=== PATIENT | female | born 1980 | race Caucasian/White ===

== ENCOUNTER → 2019-09-29 | Outpatient (CLI) | payer OTHER ==
[~2019-09-29] VITALS: Ht 162.6 cm; Wt 72.6 kg
[~2019-09-29] MED LIST: CONTRAST GIVEN. MC PRN; IOHEXOL 300 MG/ML 100ML VIAL. IV ONE; IOHEXOL 300 MG/ML 100ML VIAL. ONE; SINCALIDE 1.45 MCG in IV NORMAL SALINE 50ML 30 ML IV ONE
--- NOTE | 2019-09-29 12:04 | RAD ---
EXAM: Abdomen and pelvis CT with intravenous contrast. HISTORY: Epigastric pain, nausea and vomiting. TECHNIQUE: Computed tomographic images of the abdomen and pelvis were obtained following the administration of 75 cc Omnipaque 300 intravenous contrast. Multiplanar reformatting was performed. *One or more of the following individualized dose reduction techniques were utilized for this examination: 1. Automated exposure control. 2. Adjustment of the mA and/or kV according to patient size. 3. Use of iterative reconstruction technique. COMPARISON: Sonogram dated 01/18/2014. FINDINGS: Evaluation of the lower thorax is unremarkable. No suspicious hepatic lesion is seen. The gallbladder, pancreas, spleen, adrenal glands and kidneys are unremarkable. There is no appendicitis. There is no bowel obstruction. The urinary bladder is unremarkable. There is a 2.4 cm dominant right ovarian follicle/follicular cyst and small amount of pelvic free fluid. There is a 1.9 cm fluid density structure within the cervix, likely a large nabothian cyst. There is no lymphadenopathy. There is no suspicious osseous lesion. IMPRESSION: 1. No acute abdominal finding. 2. 2.4 cm dominant right ovarian follicle/follicular cyst and small amount of pelvic free fluid, within this cirrhotic limits for a premenopausal female. There is also a suspected incidental nabothian cyst within the cervix. Electronically signed by: Catherine Narayan MD (09/29/2019 12:01 PM) [id number]
--- NOTE | 2019-09-29 14:09 | RAD ---
EXAM: HEPATOBILIARY SCINTIGRAPHY WITH GALLBLADDER EJECTION FRACTION CALCULATION. HISTORY: Abdominal pain/nausea. TECHNIQUE: 5.5 mCi technetium-99m Choletec were administered intravenously and scintigraphic images of the abdomen obtained. After filling of the gallbladder, 1.43 mcg of sincalide were infused and the gallbladder ejection fraction calculated. FINDINGS: There is prompt hepatic clearance of tracer from the blood pool. There is homogeneous distribution throughout the liver. There is normal filling of the gallbladder and clearance into the biliary tree and small bowel. The gallbladder ejection fraction is 59% (normal >35%). IMPRESSION: 1. Normal gallbladder ejection fraction. Electronically signed by: Ivone Jasso MD (09/29/2019 2:05 PM) [facility]
== END | disposition home or self-care (01) ==
LOC: CT 11:01
PROVIDERS: ATTEND Surgery
DX: R10.13 Epigastric pain (principal); R11.2 Nausea with vomiting, unspecified
CPT/HCPCS: 74177; 78227; A9537; J2805; Q9967

== ENCOUNTER → 2020-03-12 | Outpatient (CLI) | payer OTHER ==
--- NOTE | 2020-03-12 11:52 | KCIC ---
MRI Cervical Spine Without Contrast History:Bilateral wrist pain, shoulder pain Technique: Multiplanar, multi sequential noncontrast MR imaging was performed of the cervical spine. Comparison: None Findings: There is motion degradation. Cervical cord caliber is within normal limits. There is mild prominence of the central canal of the cord C6-7 to C7-T1, maximal axial dimension about 1 to 2 mm. There is no significant marrow edema. Cervical vertebral body stature is maintained. There is negligible posterior subluxation of C4 relative to C5 and C5 relative to C6. There is mild to moderate degenerative disc disease greater posteriorly at C5-6, minimally at C4-5. C2-C3: Neural foramina and spinal canal are adequate. C3-C4: Neural foramina and spinal canal are adequate. C4-C5: There is minimal disc osteophyte complex. Neural foramina and spinal canal are adequate. C5-C6: There is very minimal disc osteophyte complex, very shallow protrusion in the far right lateral recess. Spinal canal is overall adequate. Left neural foramen is adequate. There is very mild narrowing of the right neural foramen, likely minimal uncovertebral degenerative change. C6-C7: Spinal canal and neural foramina are adequate. There is bilateral facet degenerative change. C7-T1: Neural foramina and spinal canal are adequate. Impression: 1. There is no significant cervical spinal stenosis or neural foramina compromise. There is degenerative disc disease greatest at C5-6 and to a lesser degree at C4-5. 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 Electronically signed by: Kareem Pathak MD (03/12/2020 11:49 AM) [id number]
== END | disposition home or self-care (01) ==
LOC: KCIC MRI 10:15
PROVIDERS: ATTEND Physician Assistant
DX: M47.892 Other spondylosis, cervical region (principal); M54.12 Radiculopathy, cervical region; M50.320 Other cervical disc degeneration, mid-cervical region, unspecified level; M25.78 Osteophyte, vertebrae; Q06.4 Hydromyelia
CPT/HCPCS: 72141

== ENCOUNTER → 2020-07-13 | Outpatient (CLI) | payer OTHER ==
[~2020-07-13] MED LIST changes: -CONTRAST GIVEN. MC PRN; +GADOTERATE 5 MMOL/10ML VIAL. INT ART ONE; -IOHEXOL 300 MG/ML 100ML VIAL. IV ONE; -IOHEXOL 300 MG/ML 100ML VIAL. ONE; +IOHEXOL 300 MG/ML 50 ML VIAL. INT ART ONE; +LIDOCAINE 1% Multi-Dose 20 ML VIAL. ID ONE; -SINCALIDE 1.45 MCG in IV NORMAL SALINE 50ML 30 ML IV ONE
--- NOTE | 2020-07-13 15:04 | KCIC ---
Examination: MRI left shoulder arthrogram HISTORY: History of left shoulder pain, decreased range of motion COMPARISON: None available Technique: Multiplanar, multisequence MR imaging of the left shoulder performed after arthrogram injection. FINDINGS: The long head of the biceps tendon within the bicipital groove. The attachment of the long head the biceps tendon to the superior labral anchor grossly appears intact. The attachment of the subscapularis, supraspinatus, infraspinatus tendon grossly appears intact. Mild increased signal identified in the supraspinatus tendon likely mild tendinosis. The muscle bulk grossly appears unremarkable. There is increased signal identified in the signal identified in the inferior labrum extending anteriorly likely labral tear with a 1.4 cm cystic structure extending medially from the inferior labrum, best visualized on series 8 image 12 likely paralabral cyst. Moderate joint space loss identified in the the glenohumeral joint. The acromion is type II. Mild degenerative changes acromioclavicular joint. Mild chondromalacia glenoid humeral joint. IMPRESSION: 1. Tear of the inferior labrum extending anteriorly with a 1.4 cm cystic structure extending medially from the inferior labrum, best visualized on series 8 image 12 likely paralabral cyst. 2. Moderate degenerative changes glenohumeral joint. Mild chondromalacia glenohumeral joint. Electronically signed by: Naman Pickett MD (07/13/2020 3:01 PM) [place] [id number]
--- NOTE | 2020-07-16 08:31 | KCIC ---
Examination: Left Shoulder Arthrogram: Indications: Left shoulder pain. Procedure: Risks, benefits and complications including bleeding, infection, blood vessel damage or joint infection were discussed with the patient. Questions were answered and consent form signed. The patient was placed supine on the fluoroscopy table with the shoulder slightly externally rotated. Bony landmarks were used to plan for fluoroscopic injection. The patient was carefully prepped and draped in a sterile fashion. Using fluoroscopic guidance, local anesthetic and a 22 gauge needle the joint space was entered. Intra-articular location was confirmed as approximately 12cc of a mixture of 5 mL of lidocaine, 5 mL of Omnipaque, 10 mL of saline, 0.1 mL of clariscan was injected into the shoulder joint. The procedure was well tolerated and the patient was sent to MRI. No immediate complications. Total fluoroscopy time 15 seconds. Total fluoroscopic images 1. Impression: Status post fluoroscopic guided arthrogram in preparation for MRI with contrast. Electronically signed by: Naman Pickett MD (07/16/2020 8:27 AM) [id number]
== END ==
LOC: KCIC 12:32
PROVIDERS: ATTEND Physician Assistant
DX: S43.432A Superior glenoid labrum lesion of left shoulder, initial encounter (principal); M94.212 Chondromalacia, left shoulder; X58.XXXA Exposure to other specified factors, initial encounter; Y93.89 Activity, other specified; Y92.89 Other specified places as the place of occurrence of the external cause; Y99.8 Other external cause status
CPT/HCPCS: 23350; 73222; 77002; A9575; J3490; Q9967; 73040

== ENCOUNTER → 2020-08-21 | Outpatient (CLI) | payer OTHER ==
[~2020-08-21] MED LIST changes: +ASPI-630 PO; -GADOTERATE 5 MMOL/10ML VIAL. INT ART ONE; +HYDR-3164 PO; -IOHEXOL 300 MG/ML 50 ML VIAL. INT ART ONE; +LACT1CAP29 PO; -LIDOCAINE 1% Multi-Dose 20 ML VIAL. ID ONE; +LISD60CA PO; +TRAZ-123 PO; +VENL150C6 PO
== END ==
LOC: LAB 12:46
PROVIDERS: ATTEND Orthopaedic Surgery
DX: Z01.812 Encounter for preprocedural laboratory examination (principal); G56.03 Carpal tunnel syndrome, bilateral upper limbs; Z20.828 Contact with and (suspected) exposure to other viral communicable diseases
CPT/HCPCS: U0003

== ENCOUNTER 2020-08-24 06:13 | Day surgery (SDC) | payer OTHER ==
[~2020-08-24] VITALS: Ht 165.1 cm; Wt 68.0 kg
[~2020-08-24 06:13] MED LIST changes: +DEXAMETHASONE SOD PHOS 4 MG/ML VIAL ONE; -HYDR-3164 PO; +LIDOCAINE 2% PF 5 ML VIAL. ONE; +ONDANSETRON PF 4 MG/2 ML VIAL. ONE; +PROPOFOL 10 MG/ML (20ML) VIAL. IV ONE; +SEVOFLURANE 31 TO 60 MINUTES. IH ONE; +ceFAZolin SODIUM IV Push 1 GM VIAL. IVP PRN
[2020-08-24] MEDS ORDERED: MIDAZOLAM HCL/PF 2 MG/2 ML VIAL. ONE (06:33)
[2020-08-24] MEDS ORDERED: fentaNYL PF VIAL 100 MCG/2 ML VIAL ONE ×2 (06:41→08:42)
[2020-08-24] MEDS ORDERED: ONDANSETRON PF 4 MG/2 ML VIAL. IV PRN (07:00)
[2020-08-24] MEDS ORDERED: LIDOCAINE 1% PF 2 ML VIAL. ID PRN (07:00)
[2020-08-24] MEDS ORDERED: HYDROmorphone 2 MG/ML VIAL IV PRN (07:00)
[2020-08-24] MEDS ORDERED: IV RINGERS,LACTATED 1000ML 1,000 ML IV SCH (07:00)
[2020-08-24] MEDS ORDERED: PROCHLORPERAZINE 10 MG/2 ML VIAL. IV PRN (07:00)
[2020-08-24] MEDS ORDERED: MORPHINE SULFATE 2 MG/ML VIAL. IV PRN (07:00)
[2020-08-24] MEDS ORDERED: fentaNYL PF VIAL 100 MCG/2 ML VIAL IV PRN ×2 (07:00)
[2020-08-24] MEDS ORDERED: BUPIVACAINE MPF 0.25% 30 ML VIAL. ONE (07:09)
[2020-08-24] MEDS ORDERED: SCOPOLAMINE 1.5MG PATCH. TD ONE (07:30)
[2020-08-24] MEDS ORDERED: PROPOFOL 10 MG/ML (20ML) VIAL. IV ONE ×2 (07:51→08:02)
[2020-08-24] MEDS ORDERED: HYDR-3164 PO (08:44)
--- NOTE | 2020-08-24 08:47 | DISCH ---
DISCHARGE INSTRUCTIONS Condition on Discharge Condition on Discharge: Stable Activity After Discharge Activity Instructions for Disc: Other, see below (Avoid hard grasp) Lifting Instructions after Dis: No heavy lifting Weight Bearing Status after Di: As tolerated Diet after Discharge Diet after Discharge: Regular Wound Incision Care Wound/Incision Care: Keep wound elevated, Do not change dressing (Keep dressing clean and dry) Contacting the after DC Call your doctor for: Concerns you may have Follow-Up Follow up with: Dr. Saab 10 days BREANA SAAB MD Aug 24, 2020 08:47
[2020-08-24 09:01] VITALS: BP 118/48
[2020-08-24] MEDS ORDERED: HYDROcodone/APAP 5/325MG 1 TAB TABLET ONE (09:01)
[2020-08-24] MEDS ORDERED: SEVOFLURANE 16 TO 30 MINUTES. IH ONE (09:05)
[2020-08-24] MEDS ORDERED: HYDROcodone/APAP 5/325MG 1 TAB TABLET PO ONE (09:15)
--- NOTE | 2020-08-24 22:34 | PDOC4 ---
Operative Note Operative Note Date of surgery: 08/24/2020 Preoperative diagnosis: Bilateral carpal tunnel syndrome Postoperative diagnosis: Same with moderate median nerve compression Operative procedure: Bilateral carpal tunnel release Surgeon: Katiana Track Repair Supervisor: Mayank narvaez Anesthesia: General Estimated blood loss: 1 cc right hand, 4 cc, left hand Complications: None Operative indications: Please see my preoperative orthopedic clinic note for detailed operative indications and note documented bilateral carpal tunnel syndrome based on clinical examination and verified by EMG testing Operative text: Patient was identified procedure verified patient placed in supine position on operating table. After adequate amounts of general anesthesia were administered bilateral upper extremities were prepped and draped in standard sterile fashion and after timeout was performed patient procedure identified and verified the right upper extremity was exsanguinated by Esmarch bandage tourniquet inflated to 250 mmHg and a longitudinal incision made just distal to the distal wrist crease dissection carried out down to the transverse carpal ligament which was sharply divided at its midpoint with a scalpel and then divided proximally and distally with blunt Metzenbaum scissors and verification of entire release of the transverse carpal ligament both visually and palpably. No synovitis was noted in the flexor tendons median nerve was noted to have moderate compression. Thorough irrigation carried out and skin closure accomplished with nylon suture sterile soft dressings were applied, fingers noted to be warm pink following deflation of the tourniquet. Attention was then turned to the left upper extremity which was exsanguinated by Esmarch bandage which was retained proximally as a tourniquet as she had an antecubital IV in the left arm. A longitudinal incision made just distal to the distal wrist crease dissection carried out down to the transverse carpal ligament which was sharply divided at its midpoint with a scalpel and then divided proximally and distally with blunt Metzenbaum scissors and verification of entire release of the transverse carpal ligament both visually and palpably. No synovitis was noted in the flexor tendons median nerve was noted to have moderate compression. Thorough irrigation carried out and skin closure accomplished with nylon suture, fingers noted to be warm pink following removal of the Esmarch bandage and sterile soft dressings were applied. Patient was returned to recovery room in stable condition having tolerated procedure well BREANA STOKES MD Aug 24, 2020 22:34
== END 2020-08-24 09:30 | disposition home or self-care (01) ==
LOC: SURG 06:13
PROVIDERS: ATTEND Orthopaedic Surgery
DX: G56.03 Carpal tunnel syndrome, bilateral upper limbs (principal); F41.9 Anxiety disorder, unspecified; Z79.899 Other long term (current) drug therapy; Z79.82 Long term (current) use of aspirin; Z98.890 Other specified postprocedural states; Z72.89 Other problems related to lifestyle; Z88.5 Allergy status to narcotic agent
CPT/HCPCS: 64721; 81025; J0690; J1100; J2250; J2405; J2704; J3010; J3490

== ENCOUNTER → 2021-10-31 | Outpatient (CLI) | payer OTHER ==
[~2021-10-31] MED LIST changes: -DEXAMETHASONE SOD PHOS 4 MG/ML VIAL ONE; +HYDR-3164 PO; -LACT1CAP29 PO; +LACT1CAP37 PO; -LIDOCAINE 2% PF 5 ML VIAL. ONE; -ONDANSETRON PF 4 MG/2 ML VIAL. ONE; -PROPOFOL 10 MG/ML (20ML) VIAL. IV ONE; -SEVOFLURANE 31 TO 60 MINUTES. IH ONE; -ceFAZolin SODIUM IV Push 1 GM VIAL. IVP PRN
--- NOTE | 2021-10-31 11:49 | KCIC ---
Bilateral digital screening mammograms with 3-D tomosynthesis: Reason for examination: Routine screening. Comparison is made to previous study dated 12/12/2013. Bilateral mammograms in CC and oblique projections were obtained with 2-D imaging and 3-D tomosynthes is imaging on a Siemens Inspiration unit and reviewed on the workstation. Interpretation was made wit h the benefit of CAD. The skin and nipples show no abnormalities. No abnormal axillary lymph nodes are seen. The breast par enchyma is heterogeneously dense. (Breast density: Category C.) There appears to be a faint area of n odular parenchyma at the 3:00 B position of the right breast which appears to be stable. There are no new dominant masses, suspicious calcifications or architectural distortion. Impression: No evidence of malignancy. Recommend routine screening. Your patient's mammogram demonstrates that she has dense breast tissue (breast density category C or D), which could hide abnormalities, and if she has other risk factors for breast cancer that have bee n identified, she might benefit from supplemental screening tests that may be suggested by you as her ordering physician. Dense breast tissue, in and of itself, is a relatively common condition. Therefo re, this information is not provided to cause undue concern, but rather to raise your awareness and t o promote discussion with your patient regarding the presence of other risk factors, in addition to d ense breast tissue. Your patient's mammography results will be sent to her. BI-RAD Category 2: Benign. "Our facility is accredited by the [employer] Mammography Program." This patient's information has been entered into a reminder system for the patient to be notified wit h the results of her examination and a target date for the next mammogram. Electronically signed by: Felipa Carey MD (10/31/2021 11:47 AM) [id number]
== END ==
LOC: KCIC MAMMO 09:06
PROVIDERS: ATTEND Physician Assistant Medical
DX: Z12.31 Encounter for screening mammogram for malignant neoplasm of breast (principal)
CPT/HCPCS: 77063; 77067